=== PATIENT | male | born 1960 | race Caucasian/White ===

== ENCOUNTER 2022-09-22 19:34 | Emergency (ER) | payer MEDICAID, SELFPAY ==
[2022-09-22 19:44] VITALS: BP 145/92; PULSE 89; RESP 20; TEMP 36.4; O2SAT 98; BMI 21.4
--- NOTE | 2022-09-22 20:00 | CRLHL7_ITS ---
For Patients: As a result of the Century Cures Act, medical imaging exams and procedure reports are released immediately into your electronic medical record. You may view this report before your referring provider. If you have questions, please contact your health care provider. INDICATION: Chest pain COMPARISON: None TECHNIQUE: PA and lateral views of the chest were acquired FINDINGS: TUBES AND LINES: None. HEART AND MEDIASTINUM: The heart size is normal. The mediastinal contour appears normal for patient age. LUNGS AND PLEURAL SPACES: Hyperinflated but otherwise unremarkable appearing lungs without acute focal finding.Consider COPD in the appropriate clinical setting. No pleural effusion or pneumothorax. OSSEOUS STRUCTURES: Age-appropriate appearance. No acute focal finding. IMPRESSION: Hyperinflated but otherwise unremarkable appearing lungs without acute focal finding. Dictated by George Conrad MD @ 09/22/2022 8:58:58 PM (Electronically Signed)
--- NOTE | 2022-09-22 20:03 | ED_ITS ---
HPI - General Adult General Time Seen by Provider: 20:03 Date Seen: 09/22/22 Chief complaint: Chest Pain Stated complaint: Chest Pain Time Seen by Provider: 09/22/22 19:50 Source: patient, RN notes reviewed and old records reviewed Mode of arrival: ambulatory Limitations: no limitations History of Present Illness HPI narrative: 62-year-old male who presents today with chest pain. Patient had abrupt onset of left anterior chest pain about 1 hour prior to coming emergency department. Pain is constant, worse with deep inspiration. He does not feel short of breat h. Started coughing about half an hour ago. No runny nose. No fever. No nausea, vomiting, diarrhea, abdominal pain. No lower extremity swelling. Has not taken anything for the pain. Related Data Home Medications Medication Instructions Recorded Confirmed No Known Home Medications 09/22/22 09/22/22 Allergies Allergy/AdvReac Type Severity Reaction Status Date / Time No Known Drug Allergies Allergy Verified 09/22/22 19:44 Review of Systems Status of ROS: Reports: 10 or more systems reviewed and unremarkable except as noted in History and below [facility] Medical History (Updated 09/22/22 @ 20:52 by Alvin Ahumada MD) No significant past medical history Surgical History (Updated 09/22/22 @ 19:47 by Stefan Santiago RN) No significant past surgical history Social History Smoking Status: Current every day smoker What tobacco products do you use: cigarettes Second hand tobacco smoke exposure: No How often do you have a drink containing alcohol: monthly or less How often do you have six or more drinks on one occasion: Never AUDIT-C Alcohol total score: 1 Non-prescribed substance use: denies use Exam Narrative: Exam Narrative: General: Well-developed and well-nourished, no acute distress Head: Atraumatic and normocephalic Eyes: Pupils are equal reactive, extraocular motions intact, conjunctiva clear ENT: External nose and ears are normal, posterior pharynx without erythema or exudate Neck: No midline cervical tenderness, full spontaneous range of motion the neck, trachea midline, no adenopathy Heart: Regular rate and rhythm no murmurs or thrills Lungs: Clear to auscultation bilaterally without wheezes or crackles. Point tenderness of the left anterior inferior chest wall reproduces complaint Abdomen: Soft, nontender, nondistended with active bowel sounds Musculoskeletal: No tenderness, deformity, or edema Neurologic: Awake, alert, and oriented x3, no gross focal neurologic deficits, cranial nerves intact as tested Psych: Mood and affect are appropriate Skin: No rashes Const: Vital Signs, click to edit/add: Vital Signs - 24 hr 09/22/22 19:44 Temperature 97.6 F Pulse Rate [Right Pulse Oximeter] 89 Respiratory Rate 20 Blood Pressure [Ri ght Upper Arm] 145/92 H Pulse Oximetry 98 Oxygen Delivery Me thod Room Air Course Course Hospital Course: Patient seen examined, prior records are reviewed. Patient presents today with chest pain. Differential diagnosis includes but not limited to muscle strain, pneumonia, pulmonary embolism, acute coronary syndrome, pneumothorax, rib fracture. Patient presents with abrupt onset left-sided chest pain. Reproducible and point tender. Initial EKG is reassuring. Says it feels similar to and pneumonia past. Patient does have history of ongoing nicotine use, no other medical problems. Labs and chest x-ray ordered. Consider CT PE protocol in this will be ordered based on D-dimer results if appropriate. Toradol IV ordered for pain. Reevaluation(s) Reevaluation #1: Labs independently interpreted by me demonstrate leukocytosis, troponin is negative, D-dimer is negative, basic panel is reassuring in BNP is still pending. Chest x-ray independently interpreted by me demonstrates a subtle infiltrate in the left lower lobe consistent with acute pneumonia. Rocephin and doxycycline are ordered. Patient is stable for discharge with no tachycardia or hypoxia, no respiratory distress. Time: 20:51 Reevaluation #2: Patient recheck. Pain is resolved after Toradol. Discussed diagnosis and plan. Repeat troponin will be done at 10:00 p.m. and patient will be discharged if this is normal. Time: 21:40 Reevaluation #3: Repeat troponin independently interpreted by me negative. Patient is stable for discharge Time: 22:13 Vital Signs Vital signs: Initial Vital Signs Temperature 97.6 F 09/22/22 19:44 Temperature Source Temporal Artery Scan 09/22/22 19:44 Pulse Rate 89 09/22/22 19:44 Pulse Rhythm 09/22/22 19:44 Pulse Strength 0+ Absent 09/22/22 19:44 Respiratory Rate 20 09/22/22 19:44 Blood Pressure 145/92 H 09/22/22 19:44 Blood Pressure Mean 109 09/22/22 19:44 Blood Pressure Position Supine 09/22/22 19:44 Pulse Oximetry 98 09/22/22 19:44 Oxygen Delivery Method 09/22/22 19:44 Vital Signs Temperature 97.6 F 09/22/22 19:44 Pulse Rate 89 09/22/22 19:44 Respiratory Rate 20 09/22/22 19:44 Blood Pressure 145/92 H 09/22/22 19:44 Pulse Oximetry 98 09/22/22 19:44 Oxygen Delivery Method 09/22/22 19:44 Temperature 97.6 F 09/22/22 19:44 Pulse Rate 89 09/22/22 19:44 Respiratory Rate 20 09/22/22 19:44 Blood Pressure 145/92 H 09/22/22 19:44 Pulse Oximetry 98 09/22/22 19:44 Oxygen Delivery Method 09/22/22 19:44 Medical Decision Making Medical Records Medical records reviewed: Yes I reviewed the patient's medical records Lab Data Lab results reviewed: Yes I reviewed the patient's lab results Labs: Lab Results 09/22/22 09/22/22 09/22/22 Range/Units 19:40 19:40 19:50 WBC 11.10 H (4.50-11.00) K/uL RBC 4.86 (4.30-5.90) m/uL Hgb 14.2 (13.5-17.5) gm/dL Hct 42.4 (37.0-53.0) % MCV 87 (80-100) fL MCH 29 (26-34) pg MCHC 34 (32-36) gm/dL RDW Coeff of Sherri 13.2 (11.5-15.5) % Plt Count 221 (140-440) K/uL Neut % (Auto) 73.1 H (42.0-72.0) % Lymph % (Auto) 21.9 (20-44) % Dickens % (Auto) 4.1 (0.0-11.0) % Eos % (Auto) 0.5 (0.0-7.0) % Baso % (Auto) 0.2 (0.0-3.0) % Neut # (Auto) 8.10 H (1.7-7.0) K/uL Lymph # (Auto) 2.40 (0.90-2.90) K/uL Dickens # (Auto) 0.50 (0.00-0.90) K/UL Eos # (Auto) 0.10 (0.00-0.50) K/uL Baso # (Auto) 0.00 (0.00-0.30) K/uL D-Dimer Quant (PE/DVT) (0.00-0.50) ug/ml Sodium 142 (135-149) mmol/L Potassium 4.3 (3.6-5.1) mmol/L Chloride 109 (96-114) mmol/L Carbon Dioxide 26 (20-32) mmol/L BUN 23 (7-30) mg/dL Creatinine 1.0 (0.5-1.5) mg/dL Estimated Creat Clear 72.17 Estimated GFR 86 ml/min Glucose 137 H (60-115) mg/dL Calcium 9.4 (8.4-10.6) mg/dL NT-Pro-B Natriuret Pep 137 pg/mL POC Troponin I 0.00 L (0.01-0.04) ng/ml 09/22/22 Range/Units 20:10 WBC (4.50-11.00) K/uL RBC (4.30-5.90) m/uL Hgb (13.5-17.5) gm/dL Hct (37.0-53.0) % MCV (80-100) fL MCH (26-34) pg MCHC (32-36) gm/dL RDW Coeff of Sherri (11.5-15.5) % Plt Count (140-440) K/uL Neut % (Auto) (42.0-72.0) % Lymph % (Auto) (20-44) % Dickens % (Auto) (0.0-11.0) % Eos % (Auto) (0.0-7.0) % Baso % (Auto) (0.0-3.0) % Neut # (Auto) (1.7-7.0) K/uL Lymph # (Auto) (0.90-2.90) K/uL Dickens # (Auto) (0.00-0.90) K/UL Eos # (Auto) (0.00-0.50) K/uL Baso # (Auto) (0.00-0.30) K/uL D-Dimer Quant (PE/DVT) < 0.27 (0.00-0.50) ug/ml Sodium (135-149) mmol/L Potassium (3.6-5.1) mmol/L Chloride (96-114) mmol/L Carbon Dioxide (20-32) mmol/L BUN (7-30) mg/dL Creatinine (0.5-1.5) mg/dL Estimated Creat Clear Estimated GFR ml/min Glucose (60-115) mg/dL Calcium (8.4-10.6) mg/dL NT-Pro-B Natriuret Pep pg/mL POC Troponin I (0.01-0.04) ng/ml ECG Data Attestation: I personally reviewed and interpreted this ECG as follows: Prior ECG tracings: not available for review Interpretation: Performed at 7:38 p.m. demonstrates sinus rhythm rate 95, no acute ST elevations or depressions, normal intervals, normal axis, no acute ST elevations or depressions, GA 122, QTC 439. No prior for comparison. Discharge Plan Discharge Clinical Impression: LLL pneumonia Patient Disposition: Home, Self-Care Condition: Stable Instructions: Community Acquired Pneumonia (DC) Additional Instructions: Tylenol and ibuprofen as needed pain. Take antibiotics as prescribed. Activity Level: No Restrictions Discharge Diet: Regular Prescriptions: No Action No Known Home Medications Stand Alone Forms: [employer] Info Instructions
[2022-09-22] MEDS: ASPIRIN 81 MG TAB.CHEW 324 MG PO (20:05)
[2022-09-22 20:07] LABS: Basophils Percent Auto 0.2 % (0.0-3.0); Eosinophils Percent Auto 0.5 % (0.0-7.0); Hematocrit 42.4 % (37.0-53.0); Hemoglobin* 14.2 gm/dL (13.5-17.5); Immature Granulocytes Pct Auto 0.2 %; Lymphocytes Percent Auto 21.9 % (20-44); Mean Corpuscular HGB Conc 34 gm/dL (32-36); Mean Corpuscular Hemoglobin 29 pg (26-34); Mean Corpuscular Volume 87 fL (80-100); Monocytes Percent Auto 4.1 % (0.0-11.0); Neutrophils Percent Auto 73.1 % (42.0-72.0); Platelet Count* 221 K/uL (140-440); RDW Coefficient of Variation % 13.2 % (11.5-15.5); Red Blood Count 4.86 m/uL (4.30-5.90)
[2022-09-22] MEDS: KETOROLAC 15 MG/ML inj IVP (20:16)
[2022-09-22 20:19] LABS: Chloride* 109 mmol/L (96-114)
[2022-09-22 20:20] LABS: Potassium* 4.3 mmol/L (3.6-5.1); Sodium* 142 mmol/L (135-149)
[2022-09-22 20:22] LABS: Est. Creatinine Clearance* 72.17; Estimated Glomerular Filt Rate 86 ml/min
[2022-09-22 20:23] LABS: Blood Urea Nitrogen* 23 mg/dL (7-30); Calcium* 9.4 mg/dL (8.4-10.6); Carbon Dioxide* 26 mmol/L (20-32); Glucose* 137 mg/dL (60-115)
[2022-09-22 20:24] LABS: Slide Review Reflex No
[2022-09-22 20:25] LABS: D Dimer Quantitative* < 0.27 ug/ml (0.00-0.50)
[2022-09-22 21:31] LABS: NT Pro B Type NatriureticPept* 137 pg/mL
[2022-09-22] MEDS: cefTRIAXone 1 GM in 0.9 % SODIUM CHLORIDE Mini-bag 100 ML IVPB (22:07)
[2022-09-22] MEDS: DOXYCYCLINE HYCLATE 100 MG CAPSULE PO (22:23)
== END 2022-09-22 22:22 | disposition home or self-care (01) ==
PROVIDERS: Emergency Provider Family Medicine
DX: J18.9 Pneumonia, unspecified organism (principal)
CPT/HCPCS: 36415; 71046; 80048; 83880; 84484; 85025; 85379; 93005; 96365; 96375; 99284; 99285; A9270; J0696; J1885